=== PATIENT | male | born 1975 | race Two or more races ===

== ENCOUNTER 2024-12-19 13:50 | Emergency (ER) | payer OTHER ==
[~2024-12-19] VITALS: Ht 170.2 cm; Wt 99.8 kg
[2024-12-19] MEDS ORDERED: LIDOCAINE 1%-EPI 1:100,000 20 ML VIAL ONE (14:59)
[2024-12-19] MEDS ORDERED: IBUP-1490 PO (16:04)
[2024-12-19] MEDS ORDERED: CEPH-570 PO (16:09)
[2024-12-19 16:23] VITALS: BP 126/78; TEMP 98.1; O2SAT 98
== END 2024-12-19 16:23 | disposition home or self-care (01) ==
LOC: ER 13:54
DX: S61.011A Laceration without foreign body of right thumb without damage to nail, initial encounter (principal); W26.8XXA Contact with other sharp object(s), not elsewhere classified, initial encounter; Y93.89 Activity, other specified; Y92.89 Other specified places as the place of occurrence of the external cause; Y99.8 Other external cause status
CPT/HCPCS: 12002; 99283; A6403; J3490